=== PATIENT | female | born 2000 | race African-American/Black ===

== ENCOUNTER → 2023-09-01 | Outpatient (REF) | payer OTHER ==
[2023-09-01 14:36] LABS: CHLAMYDIA DNA AMPLIFICATION NEGATIVE (NEGATIVE); GC DNA AMPLIFICATION NEGATIVE (NEGATIVE)
== END ==
LOC: M LAB REF 12:21
PROVIDERS: ATTEND Physician Assistant
DX: Z20.2 Contact with and (suspected) exposure to infections with a predominantly sexual mode of transmission (principal)

== ENCOUNTER 2025-08-04 13:07 | Emergency (ER) | payer OTHER ==
[~2025-08-04] VITALS: Ht 152.4 cm; Wt 70.5 kg
[2025-08-04 13:26] VITALS: BP 133/89; TEMP 98.4; O2SAT 99
[2025-08-04] MEDS: LIDOCAINE 1% MDV 20 ML VIAL IM ONE (13:45)
[2025-08-04] MEDS: TETANUS/DIPHTH/ACEL. PERTUSSIS 0.5 ML SYR IM.IMMUN ONE (13:54)
== END 2025-08-04 14:41 | disposition home or self-care (01) ==
LOC: M ED 13:07
DX: S61.412A Laceration without foreign body of left hand, initial encounter (principal); Y92.9 Unspecified place or not applicable; Y93.9 Activity, unspecified; Y99.0 Civilian activity done for income or pay; Z91.010 Allergy to peanuts; Z91.09 Other allergy status, other than to drugs and biological substances; Z23 Encounter for immunization